=== PATIENT | male | born 1975 | race African-American/Black ===

== ENCOUNTER 2018-04-22 18:37 | Emergency (ER) | payer SELFPAY, BC ==
[2018-04-22] MEDS: HYDROcodone/APAP 5/325MG 1 TAB TABLET PO (19:47)
== END 2018-04-22 19:57 | disposition home or self-care (01) ==
LOC: ER 19:57
DX: S90.112A Contusion of left great toe without damage to nail, initial encounter (principal); W16.512A Jumping or diving into swimming pool striking water surface causing other injury, initial encounter; Y93.89 Activity, other specified; Y92.89 Other specified places as the place of occurrence of the external cause; Y99.8 Other external cause status
CPT/HCPCS: 73630; 99284